=== PATIENT | female | born 1990 | race Caucasian/White ===

== ENCOUNTER → 2019-06-04 10:56 | Outpatient (CLI) | payer OTHER, SELFPAY ==
[2019-06-04 11:49] LABS: Hemoglobin A1C% w Est Avg Glu 5.3 % (4.0-6.0)
[2019-06-04 12:01] LABS: Cholesterol 141 mg/dL (140-199); HDL Cholesterol 41 mg/dL (40-60); LDL Cholesterol Calculated 83 mg/dL (<100); Triglycerides 84 mg/dL (35-150)
[2019-06-04 12:15] LABS: Vitamin D 25 Hydroxy (D3) 25.1 ng/mL (30.0-100.0)
== END ==
PROVIDERS: PCP Student in an Organized Health Care Education/Training Program; Visit Provider Student in an Organized Health Care Education/Training Program
DX: Z13.220 Encounter for screening for lipoid disorders (principal); E55.9 Vitamin D deficiency, unspecified; E66.01 Morbid (severe) obesity due to excess calories
CPT/HCPCS: 36415; 80061; 82306; 83036

== ENCOUNTER 2019-09-08 14:40 | Emergency (ER) | payer OTHER, SELFPAY ==
[2019-09-08 14:44] VITALS: BP 130/93; PULSE 93; RESP 20; TEMP 36.4; O2SAT 98
--- NOTE | 2019-09-08 16:19 | DI.RAD.S_ITS ---
PROCEDURE: XR LUMBAR SPINE 2-3V INDICATIONS: hx fell from bed 2wks ago, progressive worsen pain TECHNIQUE: 3 views of the lumbar spine were acquired. COMPARISON: [facility], CR, XR HIP W PEL IF DONE RT 2V, 09/08/2019, 16:22. FINDINGS: Bones: 5 [id number] vertebrae are present. There is normal bony alignment. No vertebral body compression fractures. No suspicious bony lesions. Minimal disc and foraminal narrowing noted at L5-S1. Soft tissues: Overlying bowel gas pattern is normal. No suspicious soft tissue calcifications. IMPRESSION: No visualized acute fracture or dislocation. However, if clinical concern and/or pain persist, short interval imaging followup in 7-10 days is recommended, as occult injury cannot be definitively excluded. Dictated by: Estephania Butts M.D. on 09/08/2019 at 16:56 Approved by: Estephania Butts M.D. on 09/08/2019 at 16:57
--- NOTE | 2019-09-08 16:19 | DI.RAD.S_ITS ---
PROCEDURE: XR HIP W PEL IF DONE RT 2V INDICATIONS: hx fell from bed 2wks ago, progressive worsen pain TECHNIQUE: AP pelvis with lateral view(s) of the right hip(s). COMPARISON: None. FINDINGS: Bones: No fractures or dislocations. Pelvic ring appears intact. No suspicious bony lesions. Soft tissues: The visualized bowel gas pattern is normal. No suspicious soft tissue calcifications. IMPRESSION: No visualized acute fracture or dislocation. However, if clinical concern and/or pain persist, short interval imaging followup in 7-10 days is recommended, as occult injury cannot be definitively excluded. Dictated by: Estephania Butts M.D. on 09/08/2019 at 16:56 Approved by: Estephania Butts M.D. on 09/08/2019 at 16:56
[2019-09-08] MEDS: ACETAMINOPHEN 325 MG TABLET 650 MG PO (16:32)
[2019-09-08] MEDS: KETOROLAC 60 MG/2 ML VIAL 30 MG IM (16:33)
[2019-09-08] MEDS: CYCLOBENZAPRINE 10 MG TABLET PO (16:33)
[2019-09-08] MEDS: LIDOCAINE PATCH 1 EACH ADH..PATCH TOP (16:33)
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
[2019-09-08 17:59] VITALS: BP 110/63; PULSE 90; RESP 18; O2SAT 98
== END 2019-09-08 18:06 | disposition home or self-care (01) ==
PROVIDERS: Emergency Provider Nurse Practitioner Family; PCP Student in an Organized Health Care Education/Training Program
DX: M54.41 Lumbago with sciatica, right side (principal); M25.551 Pain in right hip; W06.XXXA Fall from bed, initial encounter
CPT/HCPCS: 72100; 73502; 96372; 99283; J1885

== ENCOUNTER 2019-10-27 07:30 | Outpatient (RCR) | payer OTHER, SELFPAY ==
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
--- NOTE | 2019-09-30 11:09 | PT.OPPOC ---
Addendum entered and electronically signed by Claribel Garibay PT 01/06/20 14:02: Resending POC for physician signature. Original Note: Physical, Occupational & Speech Therapy At [facility] Current Diagnoses Sacrococcygeal disorders, not elsewhere classified (09/30/19) Sciatica, unspecified side (09/30/19) Low back pain (09/30/19) Visit Care Team Role Provider Type Mello Wolf MD Attending Provider Physician Primary Care Provider Referring Provider Specialty: Internal Medicine Address: [address] [place] [address], [address], [address] Email: [email or web address] Plan Of Care PT-OP-T Assessment and Plan Start: 09/30/19 07:23 Freq: Status: Active Protocol: Document 09/30/19 07:26 MB (Rec: 09/30/19 11:07 MB [id number]) Physical Therapy Assessment Rehab Potential Rehabilitation Potential Good Evaluation Complexity Number of Personal Factors/Comorbidities 1-2 Number of Body Systems Impaired 1-2 Clinical Presentation at Evaluation Stable Impairments Impairments Pain,Posture,Soft Tissue Mobility Other Impairments Personal factors include body habitus and work requirements of lifting. Body systems affected include musculoskeletal. Goals 3 Drawer Upfitter Goal (LTG) Pt will report an overall 75% improvment in back pain to improve quality of life by . LTG Duration 8 weeks 2 Drawer Upfitter Goal (LTG) Pt will perform progressive HEP including pelvic realignment, flexibility, core and LE strengthening as well as body mechanics with I to prevent future injury by 2019. LTG Duration 8 weeks 1 Impairment Oswestry reflects 40% impairment Skilled Nursing Goal (LTG) Pt will present with an improved Oswestry LBP scale score to reflect no more than 20% impairment to allow pt to work with less back pain by . LTG Duration 8 weeks Assessment Summary Assessment Pt is a 29 y/o female presenting with right SI pain that is reproduced with SI compression test. She favors lumbar extension to flexion with hands 1 foot off the floor with forward flexion. She is able to improve lumbar extension 5 deg after multiple reps. Pt presents with postural changes, pelvic obliquities and myofascial changes. Her LE strength is good and she will benefit from core and hip extension and abduction strengthening as well as flexibility. 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 Barriers include work requirements of lifting and body habitus. Physical Therapy Plan Frequency and Duration Frequency of Treatment 1x/Week Duration of Treatment 8 weeks Plan of Care Start Date 09/30/19 Plan of Care End Date 12/01/19 Therapeutic Interventions Therapeutic Interventions Balance Training,Home Exercise Program,Joint Mobilizations, Manual Therapy,Neuromuscular Re-education,Patient/Caregiver Education,Self-Care/Home Management,Soft Tissue Mobilization,Taping, Therapeutic Exercises Next Visit Focus/Plan Next Note Type Treatment Note Next Visit Plan Review pelvic realignment exercises and progress flexibility and strengthening Plan of Care Dates Plan of Care Start Date 09/30/19 Plan of Care End Date 12/01/19 Electronically Signed by: Claribel Garibay PT 09/30/19 [id number] Please Sign and Return: I have reviewed this Plan of Care and certify that the skilled therapy services above are required to meet the patient?s needs. Physician Signature Date Printed Name and Credentials Clinical Instructor Signature Printed Name and Credentials
--- NOTE | 2019-10-06 08:28 | PT.OTN ---
Current Diagnoses Sacrococcygeal disorders, not elsewhere classified (10/06/19) Sciatica, unspecified side (10/06/19) Low back pain (10/06/19) Physical Therapy Treatment Note PT-OP-A Visit Information Start: 09/30/19 07:23 Freq: Status: Active Protocol: Document 10/06/19 07:33 MB (Rec: 10/06/19 08:28 MB [id number]) Out-Patient Physical Therapy Visit Information Visit Information Visit Type Treatment Note Visit Start Time 07:33 Visit Stop Time 08:21 Total Visit Minutes 48 Visit Number 2 PT-OP-B Current Condition Start: 09/30/19 07:23 Freq: Status: Active Protocol: Document 09/30/19 07:26 MB (Rec: 09/30/19 07:44 MB [id number]) Current Condition History of Current Condition Onset Date 08/27/2019 Current Complaints R LB pain near sacrum History of Current Condition Pt fell OOB on 08/27/2019 and landed on right hip. She had pain in both legs. She went to ED 09/08/2019 and pelvis x-ray was negative. Overall, the pain is getting better. She sleeps on her side and her stomach. She puts a pillow under her leg on her stomach and does not use a pillow between her legs when she sleeps on her side. Her pain is getting better and is 5/10 normally and occ gets up to 7-8/10 on a bad day. She feels like she needs to stretch at those times. 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 She has five kids that are her 's from a previous marriage and they are self-sufficient. Pt had PT in the past for back pain. She did not have pain shooting down her legs at that time. She had a good experience with PT. She did a lot of stretches and she used traction. This was helpful. Pt reports occ tingling down front of right leg to her knee and rarely to her right foot. Treatment Goals Patient/Caregiver Goals See subjective comments PT-OP-C Subjective Start: 09/30/19 07:23 Freq: Status: Active Protocol: Document 10/06/19 07:33 MB (Rec: 02/24/20 08:28 MB [id number]) OP-PT Subjective Patient Comments Patient Comments Pt states that she is doing about the same. PT-OP-J Posture/Palpation/Skin Start: 09/30/19 07:23 Freq: Status: Active Protocol: Document 09/30/19 07:26 MB (Rec: 09/30/19 11:07 MB [id number]) Posture Evaluation Comments Posture Comments Standing posture: forward head , possible start of mild Dowager's hump, increased lumbar lordosis, increased overall body habitus, anterior tilt pelvis, left iliac crest higher than the right in standing and stiffer than the right with SI compression in supine, increased left greater than right Yazmin angle and overpronation left foot. PT-OP-M Strength Start: 09/30/19 07:23 Freq: Status: Active Protocol: Document 09/30/19 07:26 MB (Rec: 09/30/19 11:07 MB [id number]) Hip Strength Hip Manual Muscle Testing Left Flexion (L2) 5 Normal Abduction 5 Normal Comments Supine Right Flexion (L2) 5 Normal Abduction 5 Normal Comments Supine Knee Strength Knee Manual Muscle Testing Left Flexion (S2) 5 Normal Extension (L3) 5 Normal Comments Supine Right Flexion (S2) 5 Normal Extension (L3) 5 Normal Comments Supine Ankle/Foot Strength Ankle and Foot Manual Muscle Testing Left Dorsiflexion (L4) 5 Normal Right Dorsiflexion (L4) 5 Normal PT-OP-Q Treatments Start: 09/30/19 07:23 Freq: Status: Active Protocol: Document 10/06/19 07:33 MB (Rec: 10/06/19 08:28 MB [id number]) Therapeutic Exercises Supine Exercises Pelvic realignment exercises Comments Performed two reps all exercises, 3 sec hold Sitting Exercises Hip rotator stretch Comments Performed B, 30 sec hold Thoracic rotation mobility Comments Performed both directions Hamstring and gastroc stretch Comments Performed B, 30 sec hold Standing Exercises QL stretch Comments Performed B near wall, 30 sec hold Hip flexor stretch Comments Performed B near wall, 30 sec hold Manual Therapy Treatment Other Other Manual Treatments Supine MWM with PT providing hip flexor trigger point pressure and pt performing active supine HS, performed B PT-OP-T Assessment and Plan Start: 09/30/19 07:23 Freq: Status: Active Protocol: Document 10/06/19 07:33 MB (Rec: 02/24/20 08:28 MB [id number]) Physical Therapy Assessment Goals 3 Nurse First Assist Goal (LTG) Pt will report an overall 75% improvment in back pain to improve quality of life by . LTG Duration 8 weeks 2 Nurse First Assist Goal (LTG) Pt will perform progressive HEP including pelvic realignment, flexibility, core and LE strengthening as well as body mechanics with I to prevent future injury by 2019. LTG Duration 8 weeks 1 Impairment Oswestry reflects 40% impairment Half-Way Goal (LTG) Pt will present with an improved Oswestry LBP scale score to reflect no more than 20% impairment to allow pt to work with less back pain by . LTG Duration 8 weeks Assessment Summary Assessment Progressed flexbility exercises for work and initiated manual work today. Pt with right greater than left hip flexor tension, con't per POC. Physical Therapy Plan Frequency and Duration Frequency of Treatment 1x/Week Duration of Treatment 8 weeks Plan of Care Start Date 09/30/19 Plan of Care End Date 12/01/19 Therapeutic Interventions Therapeutic Interventions Balance Training,Home Exercise Program,Joint Mobilizations, Manual Therapy,Neuromuscular Re-education,Patient/Caregiver Education,Self-Care/Home Management,Soft Tissue Mobilization,Taping, Therapeutic Exercises Next Visit Focus/Plan Next Note Type Treatment Note Next Visit Plan Progress flexibility and strengthening
--- NOTE | 2019-10-15 09:00 | PT.OTN ---
Current Diagnoses Sacrococcygeal disorders, not elsewhere classified (10/15/19) Sciatica, unspecified side (10/15/19) Low back pain (10/15/19) Physical Therapy Treatment Note PT-OP-A Visit Information Start: 09/30/19 07:23 Freq: Status: Active Protocol: Document 10/15/19 08:25 SP (Rec: 10/15/19 09:02 SP [id number]) Out-Patient Physical Therapy Visit Information Visit Information Visit Type Treatment Note Visit Start Time 08:22 Visit Stop Time 09:00 Total Visit Minutes 38 Visit Number 3 Number of ELECTRON GUN ASSEMBLER Visits 1 PT-OP-B Current Condition Start: 09/30/19 07:23 Freq: Status: Active Protocol: Document 09/30/19 07:26 MB (Rec: 09/30/19 07:44 MB [id number]) Current Condition History of Current Condition Onset Date 08/27/2019 Current Complaints R LB pain near sacrum History of Current Condition Pt fell OOB on 08/27/2019 and landed on right hip. She had pain in both legs. She went to ED 09/08/2019 and pelvis x-ray was negative. Overall, the pain is getting better. She sleeps on her side and her stomach. She puts a pillow under her leg on her stomach and does not use a pillow between her legs when she sleeps on her side. Her pain is getting better and is 5/10 normally and occ gets up to 7-8/10 on a bad day. She feels like she needs to stretch at those times. 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 She has five kids that are her 's from a previous marriage and they are self-sufficient. Pt had PT in the past for back pain. She did not have pain shooting down her legs at that time. She had a good experience with PT. She did a lot of stretches and she used traction. This was helpful. Pt reports occ tingling down front of right leg to her knee and rarely to her right foot. Treatment Goals Patient/Caregiver Goals See subjective comments PT-OP-C Subjective Start: 09/30/19 07:23 Freq: Status: Active Protocol: Document 10/15/19 08:25 SP (Rec: 10/15/19 09:02 SP [id number]) OP-PT Subjective Patient Comments Patient Comments Pt reported having alot less twinges in R LB to glut area and compliant with exercises more in am buttrying to perform multiple times /day. PT-OP-J Posture/Palpation/Skin Start: 09/30/19 07:23 Freq: Status: Active Protocol: Document 09/30/19 07:26 MB (Rec: 09/30/19 11:07 MB [id number]) Posture Evaluation Comments Posture Comments Standing posture: forward head , possible start of mild Dowager's hump, increased lumbar lordosis, increased overall body habitus, anterior tilt pelvis, left iliac crest higher than the right in standing and stiffer than the right with SI compression in supine, increased left greater than right Yazmin angle and overpronation left foot. PT-OP-M Strength Start: 09/30/19 07:23 Freq: Status: Active Protocol: Document 09/30/19 07:26 MB (Rec: 09/30/19 11:07 MB [id number]) Hip Strength Hip Manual Muscle Testing Left Flexion (L2) 5 Normal Abduction 5 Normal Comments Supine Right Flexion (L2) 5 Normal Abduction 5 Normal Comments Supine Knee Strength Knee Manual Muscle Testing Left Flexion (S2) 5 Normal Extension (L3) 5 Normal Comments Supine Right Flexion (S2) 5 Normal Extension (L3) 5 Normal Comments Supine Ankle/Foot Strength Ankle and Foot Manual Muscle Testing Left Dorsiflexion (L4) 5 Normal Right Dorsiflexion (L4) 5 Normal PT-OP-Q Treatments Start: 09/30/19 07:23 Freq: Status: Active Protocol: Document 10/15/19 08:25 SP (Rec: 10/15/19 09:02 SP [id number]) Therapeutic Exercises Supine Exercises Lumbar rotation Supine Exercise Name stretch and core oblique rotation Reps/Minutes 30 x3 R and L, core rotation x5 R and L Comments cued core activation to need core heel slide Reps/Minutes 2x5 each LE Pelvic realignment exercises Comments Performed two reps all exercises, 3 sec hold Sitting Exercises core march Equipment Used ball, rolling stool if tolerant otherwise chair Reps/Minutes 2x5 Comments cued PPT/ upright posture Hamstring and gastroc stretch Sitting Exercise Name HS, PF, Lumbar rotation Comments Performed B, 30 sec hold Standing Exercises core march Equipment Used chair nearby for safety if needed. Reps/Minutes 2x5 Comments cued upright posture, PPT, slow PT-OP-T Assessment and Plan Start: 09/30/19 07:23 Freq: Status: Active Protocol: Document 10/15/19 08:25 SP (Rec: 10/15/19 09:02 SP [id number]) Physical Therapy Assessment Goals 3 Penitentiary Goal (LTG) Pt will report an overall 75% improvment in back pain to improve quality of life by . LTG Duration 8 weeks 2 Penitentiary Goal (LTG) Pt will perform progressive HEP including pelvic realignment, flexibility, core and LE strengthening as well as body mechanics with I to prevent future injury by 2019. LTG Duration 8 weeks 1 Impairment Oswestry reflects 40% impairment Rotor Blade Installer Goal (LTG) Pt will present with an improved Oswestry LBP scale score to reflect no more than 20% impairment to allow pt to work with less back pain by . LTG Duration 8 weeks Assessment Summary Assessment Pt progressed in flexibility and core stabilization today, cuing as needed for PPT alignment throught exercises supine, sitting, standign with positive feedback. no pain feel pretty good . Physical Therapy Plan Frequency and Duration Frequency of Treatment 1x/Week Duration of Treatment 8 weeks Plan of Care Start Date 09/30/19 Plan of Care End Date 12/01/19 Therapeutic Interventions Therapeutic Interventions Balance Training,Home Exercise Program,Joint Mobilizations, Manual Therapy,Neuromuscular Re-education,Patient/Caregiver Education,Self-Care/Home Management,Soft Tissue Mobilization,Taping, Therapeutic Exercises Next Visit Focus/Plan Next Note Type Treatment Note Next Visit Plan Progress flexibility and strengthening into squat positioning has fear falling backward. Next tx add squats, lunges, standing core side step TB.
--- NOTE | 2019-10-20 08:16 | PT.OTN ---
Current Diagnoses Sacrococcygeal disorders, not elsewhere classified (10/20/19) Sciatica, unspecified side (10/20/19) Low back pain (10/20/19) Physical Therapy Treatment Note PT-OP-A Visit Information Start: 09/30/19 07:23 Freq: Status: Active Protocol: Document 10/20/19 07:33 MB (Rec: 10/20/19 08:16 MB [id number]) Out-Patient Physical Therapy Visit Information Visit Information Visit Type Treatment Note Visit Start Time 07:33 Visit Stop Time 08:15 Total Visit Minutes 42 Visit Number 4 Number of MEDICAL SCIENCE LIAISON Visits 0 PT-OP-B Current Condition Start: 09/30/19 07:23 Freq: Status: Active Protocol: Document 09/30/19 07:26 MB (Rec: 09/30/19 07:44 MB [id number]) Current Condition History of Current Condition Onset Date 08/27/2019 Current Complaints R LB pain near sacrum History of Current Condition Pt fell OOB on 08/27/2019 and landed on right hip. She had pain in both legs. She went to ED 09/08/2019 and pelvis x-ray was negative. Overall, the pain is getting better. She sleeps on her side and her stomach. She puts a pillow under her leg on her stomach and does not use a pillow between her legs when she sleeps on her side. Her pain is getting better and is 5/10 normally and occ gets up to 7-8/10 on a bad day. She feels like she needs to stretch at those times. 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 She has five kids that are her 's from a previous marriage and they are self-sufficient. Pt had PT in the past for back pain. She did not have pain shooting down her legs at that time. She had a good experience with PT. She did a lot of stretches and she used traction. This was helpful. Pt reports occ tingling down front of right leg to her knee and rarely to her right foot. Treatment Goals Patient/Caregiver Goals See subjective comments PT-OP-C Subjective Start: 09/30/19 07:23 Freq: Status: Active Protocol: Document 10/20/19 07:33 MB (Rec: 10/20/19 08:16 MB [id number]) OP-PT Subjective Patient Comments Patient Comments Pt states that she is doing quite a bit better. She tweeked her LB yesterday and was able to recover with stretching. PT-OP-J Posture/Palpation/Skin Start: 09/30/19 07:23 Freq: Status: Active Protocol: Document 09/30/19 07:26 MB (Rec: 09/30/19 11:07 MB [id number]) Posture Evaluation Comments Posture Comments Standing posture: forward head , possible start of mild Dowager's hump, increased lumbar lordosis, increased overall body habitus, anterior tilt pelvis, left iliac crest higher than the right in standing and stiffer than the right with SI compression in supine, increased left greater than right Yazmin angle and overpronation left foot. PT-OP-M Strength Start: 09/30/19 07:23 Freq: Status: Active Protocol: Document 09/30/19 07:26 MB (Rec: 09/30/19 11:07 MB [id number]) Hip Strength Hip Manual Muscle Testing Left Flexion (L2) 5 Normal Abduction 5 Normal Comments Supine Right Flexion (L2) 5 Normal Abduction 5 Normal Comments Supine Knee Strength Knee Manual Muscle Testing Left Flexion (S2) 5 Normal Extension (L3) 5 Normal Comments Supine Right Flexion (S2) 5 Normal Extension (L3) 5 Normal Comments Supine Ankle/Foot Strength Ankle and Foot Manual Muscle Testing Left Dorsiflexion (L4) 5 Normal Right Dorsiflexion (L4) 5 Normal PT-OP-Q Treatments Start: 09/30/19 07:23 Freq: Status: Active Protocol: Document 10/20/19 07:33 MB (Rec: 10/20/19 08:16 MB [id number]) Therapeutic Exercises Supine Exercises Fabien stretch Comments B 30 sec Core bracing Comments Mini marches and then double leg lift Lumbar rotation Comments Performed 5 reps side to side to loosen back before core work core heel slide Comments 1 set of 3 reps each Sidelying Exercises QL stretch side lying and standing Comments Performed B in standing and side lying Standing Exercises QL stretch Comments Performed with racquet ball massage today against ball Manual Therapy Treatment Soft Tissue Mobilization B rib recoil side lying for QL Comments Increased tension B, pelvis is tight, ed pt in side lying breathing in this position, con't with standing as well, con't progression PT-OP-T Assessment and Plan Start: 09/30/19 07:23 Freq: Status: Active Protocol: Document 10/20/19 07:33 MB (Rec: 10/20/19 08:16 MB [id number]) Physical Therapy Assessment Goals 3 Penitentiary Goal (LTG) Pt will report an overall 75% improvment in back pain to improve quality of life by . LTG Duration 8 weeks 2 Associate Professor Of Forestry Goal (LTG) Pt will perform progressive HEP including pelvic realignment, flexibility, core and LE strengthening as well as body mechanics with I to prevent future injury by 2019. LTG Duration 8 weeks 1 Impairment Oswestry reflects 40% impairment Penitentiary Goal (LTG) Pt will present with an improved Oswestry LBP scale score to reflect no more than 20% impairment to allow pt to work with less back pain by . LTG Duration 8 weeks Assessment Summary Assessment Pt is progressing with flexibility and core strengthening. Progress to glute strengthening. IFC e- stim B QL in hook lying after treatment, intensity 17 and pt with heat. Physical Therapy Plan Frequency and Duration Frequency of Treatment 1x/Week Duration of Treatment 8 weeks Plan of Care Start Date 09/30/19 Plan of Care End Date 12/01/19 Therapeutic Interventions Therapeutic Interventions Balance Training,Home Exercise Program,Joint Mobilizations, Manual Therapy,Neuromuscular Re-education,Patient/Caregiver Education,Self-Care/Home Management,Soft Tissue Mobilization,Taping, Therapeutic Exercises Next Visit Focus/Plan Next Note Type Treatment Note Next Visit Plan Next tx add squats, lunges, standing core side step TB.
--- NOTE | 2019-10-27 08:16 | PT.OTN ---
Current Diagnoses Sacrococcygeal disorders, not elsewhere classified (10/27/19) Sciatica, unspecified side (10/27/19) Low back pain (10/27/19) Physical Therapy Treatment Note PT-OP-A Visit Information Start: 09/30/19 07:23 Freq: Status: Active Protocol: Document 10/27/19 07:31 MB (Rec: 10/27/19 08:15 MB [id number]) Out-Patient Physical Therapy Visit Information Visit Information Visit Type Treatment Note Visit Start Time 07:31 Visit Stop Time 08:39 Total Visit Minutes 38 Visit Number 5 Number of WINCH OPERATOR Visits 0 PT-OP-B Current Condition Start: 09/30/19 07:23 Freq: Status: Active Protocol: Document 09/30/19 07:26 MB (Rec: 09/30/19 07:44 MB [id number]) Current Condition History of Current Condition Onset Date 08/27/2019 Current Complaints R LB pain near sacrum History of Current Condition Pt fell OOB on 08/27/2019 and landed on right hip. She had pain in both legs. She went to ED 09/08/2019 and pelvis x-ray was negative. Overall, the pain is getting better. She sleeps on her side and her stomach. She puts a pillow under her leg on her stomach and does not use a pillow between her legs when she sleeps on her side. Her pain is getting better and is 5/10 normally and occ gets up to 7-8/10 on a bad day. She feels like she needs to stretch at those times. 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 She has five kids that are her 's from a previous marriage and they are self-sufficient. Pt had PT in the past for back pain. She did not have pain shooting down her legs at that time. She had a good experience with PT. She did a lot of stretches and she used traction. This was helpful. Pt reports occ tingling down front of right leg to her knee and rarely to her right foot. Treatment Goals Patient/Caregiver Goals See subjective comments PT-OP-C Subjective Start: 09/30/19 07:23 Freq: Status: Active Protocol: Document 10/27/19 07:31 MB (Rec: 10/27/19 08:15 MB [id number]) OP-PT Subjective Patient Comments Patient Comments Pt states that she is doing better. The stretches are helpful. Pt is also seeing a chiropractor. Pt states that she felt she had a bruise feeling on left side after QL massage. PT-OP-J Posture/Palpation/Skin Start: 09/30/19 07:23 Freq: Status: Active Protocol: Document 09/30/19 07:26 MB (Rec: 09/30/19 11:07 MB [id number]) Posture Evaluation Comments Posture Comments Standing posture: forward head , possible start of mild Dowager's hump, increased lumbar lordosis, increased overall body habitus, anterior tilt pelvis, left iliac crest higher than the right in standing and stiffer than the right with SI compression in supine, increased left greater than right Yazmin angle and overpronation left foot. PT-OP-M Strength Start: 09/30/19 07:23 Freq: Status: Active Protocol: Document 09/30/19 07:26 MB (Rec: 09/30/19 11:07 MB [id number]) Hip Strength Hip Manual Muscle Testing Left Flexion (L2) 5 Normal Abduction 5 Normal Comments Supine Right Flexion (L2) 5 Normal Abduction 5 Normal Comments Supine Knee Strength Knee Manual Muscle Testing Left Flexion (S2) 5 Normal Extension (L3) 5 Normal Comments Supine Right Flexion (S2) 5 Normal Extension (L3) 5 Normal Comments Supine Ankle/Foot Strength Ankle and Foot Manual Muscle Testing Left Dorsiflexion (L4) 5 Normal Right Dorsiflexion (L4) 5 Normal PT-OP-Q Treatments Start: 09/30/19 07:23 Freq: Status: Active Protocol: Document 10/27/19 07:31 MB (Rec: 10/27/19 08:15 MB [id number]) Therapeutic Exercises Supine Exercises Child's Pose Comments Performed with moving right and left Pool noodle stretching Comments Abdominal drawing in and pect stretch on pool noodle Drop Comments Diaphragmatic breathing to drop Diaphragmatic breathing Comments 3 reps Hip abduction with band in hook lying Comments Abdominal drawing in, level 1 abduction resistance Core bracing Comments Performed mini marches and then double leg today Standing Exercises Racquet ball massage Comments Glutes and QL today PT-OP-T Assessment and Plan Start: 09/30/19 07:23 Freq: Status: Active Protocol: Document 10/27/19 07:31 MB (Rec: 10/27/19 08:15 MB [id number]) Physical Therapy Assessment Goals 3 Services Clerk Goal (LTG) Pt will report an overall 75% improvment in back pain to improve quality of life by . LTG Duration 8 weeks 2 Services Clerk Goal (LTG) Pt will perform progressive HEP including pelvic realignment, flexibility, core and LE strengthening as well as body mechanics with I to prevent future injury by 2019. LTG Duration 8 weeks 1 Impairment Oswestry reflects 40% impairment Detention Goal (LTG) Pt will present with an improved Oswestry LBP scale score to reflect no more than 20% impairment to allow pt to work with less back pain by . LTG Duration 8 weeks Assessment Summary Assessment Progressed flexibility, breathing exercises this date. 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 Physical Therapy Plan Frequency and Duration Frequency of Treatment 1x/Week Duration of Treatment 8 weeks Plan of Care Start Date 09/30/19 Plan of Care End Date 12/01/19 Therapeutic Interventions Therapeutic Interventions Balance Training,Home Exercise Program,Joint Mobilizations, Manual Therapy,Neuromuscular Re-education,Patient/Caregiver Education,Self-Care/Home Management,Soft Tissue Mobilization,Taping, Therapeutic Exercises Next Visit Focus/Plan Next Note Type Treatment Note Next Visit Plan Progress calf stretches, hip abduction and extension with TB next treatment date
--- NOTE | 2019-10-29 16:54 | PT-OP ANOTE ---
PT calls pt and pt would like to con't with PT at this time and PT is in agreement given age, improvement with PT.
--- NOTE | 2019-11-03 07:51 | PT-OP ANOTE ---
Pt did not show for today's appt, left message have more openings today if still wants to attend but next appt is scheduled with her PT on 11/10/19 at 0730.
--- NOTE | 2019-11-22 13:18 | PT-OP ANOTE ---
PT calls pt. Pt is unavailable. PT leaves message with [facility] email address for pt to email if she has any questions or concerns.
--- NOTE | 2019-12-06 16:46 | PT-OP ANOTE ---
PT calls pt. Pt states that she is doing well with self-management. Will d/c PT.
--- NOTE | 2019-12-06 16:48 | PT.OPDS ---
Current Diagnoses Sacrococcygeal disorders, not elsewhere classified (10/27/19) Sciatica, unspecified side (10/27/19) Low back pain (10/27/19) Visit Care Team Role Provider Type Mello Wolf MD Attending Provider Physician Primary Care Provider Referring Provider Specialty: Internal Medicine Address: [address] [place] [address], [address], [address] Email: [email or web address] Visit Number Visit Number 5 Discharge Summary PT-OP-B Current Condition Start: 09/30/19 07:23 Freq: Status: Active Protocol: Document 09/30/19 07:26 MB (Rec: 09/30/19 07:44 MB [id number]) Current Condition History of Current Condition Onset Date 08/27/2019 Current Complaints R LB pain near sacrum History of Current Condition Pt fell OOB on 08/27/2019 and landed on right hip. She had pain in both legs. She went to ED 09/08/2019 and pelvis x-ray was negative. Overall, the pain is getting better. She sleeps on her side and her stomach. She puts a pillow under her leg on her stomach and does not use a pillow between her legs when she sleeps on her side. Her pain is getting better and is 5/10 normally and occ gets up to 7-8/10 on a bad day. She feels like she needs to stretch at those times. 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 She has five kids that are her 's from a previous marriage and they are self-sufficient. Pt had PT in the past for back pain. She did not have pain shooting down her legs at that time. She had a good experience with PT. She did a lot of stretches and she used traction. This was helpful. Pt reports occ tingling down front of right leg to her knee and rarely to her right foot. Treatment Goals Patient/Caregiver Goals See subjective comments PT-OP-C Subjective Start: 09/30/19 07:23 Freq: Status: Active Protocol: Document 10/27/19 07:31 MB (Rec: 10/27/19 08:15 MB [id number]) OP-PT Subjective Patient Comments Patient Comments Pt states that she is doing better. The stretches are helpful. Pt is also seeing a chiropractor. Pt states that she felt she had a bruise feeling on left side after QL massage. PT-OP-J Posture/Palpation/Skin Start: 09/30/19 07:23 Freq: Status: Active Protocol: Document 09/30/19 07:26 MB (Rec: 09/30/19 11:07 MB [id number]) Posture Evaluation Comments Posture Comments Standing posture: forward head , possible start of mild Dowager's hump, increased lumbar lordosis, increased overall body habitus, anterior tilt pelvis, left iliac crest higher than the right in standing and stiffer than the right with SI compression in supine, increased left greater than right Yazmin angle and overpronation left foot. PT-OP-M Strength Start: 09/30/19 07:23 Freq: Status: Active Protocol: Document 09/30/19 07:26 MB (Rec: 09/30/19 11:07 MB [id number]) Hip Strength Hip Manual Muscle Testing Left Flexion (L2) 5 Normal Abduction 5 Normal Comments Supine Right Flexion (L2) 5 Normal Abduction 5 Normal Comments Supine Knee Strength Knee Manual Muscle Testing Left Flexion (S2) 5 Normal Extension (L3) 5 Normal Comments Supine Right Flexion (S2) 5 Normal Extension (L3) 5 Normal Comments Supine Ankle/Foot Strength Ankle and Foot Manual Muscle Testing Left Dorsiflexion (L4) 5 Normal Right Dorsiflexion (L4) 5 Normal PT-OP-T Assessment and Plan Start: 09/30/19 07:23 Freq: Status: Active Protocol: Document 12/06/19 16:48 MB (Rec: 12/06/19 16:48 MB [id number]) Physical Therapy Plan Discharge Physical Therapy Discharge Reasons Patient Request Discharge Comments Pt is doing well with self- management. Will d/c PT.
== END 2019-12-08 08:31 ==
LOC: PHYS 07:30
PROVIDERS: PCP Student in an Organized Health Care Education/Training Program; Referring Provider Student in an Organized Health Care Education/Training Program; Visit Provider Student in an Organized Health Care Education/Training Program
DX: M54.5 Low back pain (principal); M53.3 Sacrococcygeal disorders, not elsewhere classified; M54.30 Sciatica, unspecified side
CPT/HCPCS: 97032; 97110; 97140; 97161